=== PATIENT | male | born 1955 | race African-American/Black ===

== ENCOUNTER 2016-09-12 09:35 | Inpatient (IN) | payer OTHER ==
[~2016-09-12] VITALS: Ht 172.7 cm; Wt 68.2 kg
--- NOTE | ~2016-09-12 | H ---
[facility] [place] [address] HISTORY AND PHYSICAL Name: GILBERT HERNÁNDEZ Room #: 450-P ADM IN M.R.#: [id number] Admission: 09/12/16 Attend Phys: Gayathri Grullon MD Discharge: Date of : 59 Report #: [id number] THIS REPORT FOR: //name// CC: Gayathri Grullon [facility] physician/PCP REASON FOR ADMISSION: Altered mental status. HISTORY OF PRESENT ILLNESS: The patient is known to have vascular dementia with multiinfarct issues in the past. He was sent from his nursing facility. He stays at a lock down unit at [facility]. The emergency medical services were called because of an altered mental status and the patient had a fall actually last night. He does not recall if he had sustained any loss of consciousness or head injury. No reported chest pain or shortness of breath. Not really sure about the patient's baseline and how accurate the information he is providing me. He is alert, oriented and he is able to provide me with most of the history. He has been admitted because of high blood sugar and hyperosmolar issues in the past. He also carries a diagnosis of hypertension. He is known to have hyperlipidemia. No reported fever or chills. He does not recall the event of his fall. No reported headache post fall. CT was done and this revealed old changes along with possible new changes for which the radiologist recommended an MRI. The patient was admitted for further evaluation and management of his mental status. PAST MEDICAL HISTORY: 1. Hypertension. 2. Diabetes mellitus. 3. Multiinfarct dementia. 4. Remote history of UTIs and hyperosmolar status. ALLERGIES: No known drug allergies. MEDICATIONS: 1. Amlodipine 10 mg daily. 2. Aspirin daily. 3. Atorvastatin 80 mg daily. 4. Plavix 75 mg daily. 5. Glipizide 5 mg daily. 6. Isosorbide mononitrate 30 mg daily. 7. Quetiapine 25 mg daily. 8. Carvedilol 6.25 mg daily. 9. Divalproex 500 mg twice a day. 10. Metformin 1000 mg twice a day. FAMILY HISTORY: Really unreliable and unobtainable. SOCIAL HISTORY: He is a current smoker. He smokes about 4 cigarettes a day. [address] [address] HISTORY AND PHYSICAL Name: GILBERT HERNÁNDEZ Room #: 450-P [facility] IN M.R.#: [id number] Admission: 09/12/16 Attend Phys: Gayathri Grullon MD Discharge: Date of : 59 Report #: [id number] No alcohol abuse. He used to be a employment security officer. REVIEW OF SYSTEMS: GENERAL: No fever or chills. CARDIOVASCULAR: No chest pain or palpitation. PULMONARY: No cough or hemoptysis. GASTROINTESTINAL: No nausea or vomiting. GENITOURINARY: No frequency, no urgency. MUSCULOSKELETAL: Status post fall with back abrasion. NEUROLOGIC: No headache, no dizziness, no numbness in any part of his body. PHYSICAL EXAMINATION: GENERAL: The patient is actually alert, oriented. He is pleasant. He does not seem to be in apparent distress. It does look like that he had some behavioral changes and he is answering most of the questions by no, no. VITAL SIGNS: Blood pressure on presentation was 131/91. Temperature 36.8, pulse rate was 99. HEAD AND NECK: No jugular venous distention, no bruit, no thyromegaly. CHEST: Clear to auscultation bilaterally. CARDIOVASCULAR: Regular with no rub detected. ABDOMEN: Soft, nontender with no hepatosplenomegaly. LOWER EXTREMITIES: No edema. BACK: There is abrasion on that flank. LABORATORY DATA: Laboratory values revealed that the patient has potassium of 2.6, calcium of 6.1, magnesium and albumin of 1.9. IMAGES: CT images and chest x-ray were reviewed. ASSESSMENT, IMPRESSION AND PLAN: 1. Acute mental status issue with unknown baseline. 2. Hypokalemia. 3. Hypomagnesemia. 4. Hypertension. 5. Diabetes mellitus. 6. Hyperlipidemia. 7. Admission. 8. Replace electrolytes. 9. MRI of the brain. 10. Neurological consultations. 11. Repeat electrolyte panel in the next few hours. 12. Resume his blood pressure medications. 13. Resume his diabetic medications and add sliding scale insulin. 14. Very low risk for DVT. 15. Maintained on carvedilol, Plavix, aspirin, probably related to his previous [facility] [address] [place] [address] HISTORY AND PHYSICAL Name: GILBERT HERNÁNDEZ Room #: 450-P [facility] IN M.R.#: [id number] Admission: 09/12/16 Attend Phys: Gayathri Grullon MD Discharge: Date of : 59 Report #: [id number] stroke and multiinfarct dementia. 16. Neurological consultation. <ELECTRONICALLY SIGNED> By: Gayathri Grullon MD 09/13/16 1026 1125 1217 Gayathri Grullon MD /nt
--- NOTE | ~2016-09-12 | HC ---
[facility] [place] [address] CONSULTATION Name: GILBERT HERNÁNDEZ Room #: 450-P ADM IN M.R.#: [id number] Admission: 09/12/16 Attend Phys: Gayathri Grullon MD Discharge: Date of : 59 Report #: [id number] THIS REPORT FOR: //name// CC: Gayathri Grullon [facility] physician/PCP DATE OF SERVICE: 09/12/2016 HISTORY OF PRESENT ILLNESS: This is a 60-year-old male patient who was evaluated by me for altered mental status. The patient is somewhat of a poor historian and is nobody else who is here to verify the patient's history. The records indicates that he had alteration of mental status. It is not clear how long it is going on. He does not think much is wrong with him. Symptoms appear to be mild. It started spontaneously. The fall occurred per record, but is not clear what the fall was or whether he even hit anything. The patient does have multiple infarcts in the past and the speech is altered, but apparently it is somewhat more alter than now. REVIEW OF SYSTEMS: From the patient, he thinks he may be somewhat more confused than the baseline. He was having some difficulty with dizziness, which he indicates is better. He said he is a diabetic, but he is not sure whether his diabetes is under control or not. He denies any new cardiac, respiratory, GI, , musculoskeletal, constitutional, dermatological, hematological, psychiatric, throat symptoms associated with present symptomatology. He is hypertensive by history, but his blood pressure is running low here. His history is unreliable. He is a diabetic and his diabetes is uncontrolled. PAST MEDICAL HISTORY: Positive for multiple CVAs. FAMILY HISTORY: Negative for early age CVA. SOCIAL HISTORY: He smokes and he states he still smokes. PHYSICAL EXAMINATION: The patient's examination Indicates that this patient is alert and responsive. He is partly oriented. His speech is slurred. His memory and fund of knowledge is diminished. Cranial nerve examination 2-12 looks unremarkable. He has symmetrical strength, sensation, reflexes and tone in all four extremities. His reflexes are symmetrically diminished. He does cerebellar size. There is no meningeal sign or carotid bruit. I tried to look at the fundus, but he was not able to cooperate and I was not able to have a good look at the patient's fundus. He is a well-developed individual who does not have any dysmorphic features of eyes, ears and face. His hearing and vision looks adequate. His throat examination does not show any thyroid mass or any carotid bruit. Cardiac examination does not show any atrial fibrillation. His [address] [place] [address] CONSULTATION Name: GILBERT HERNÁNDEZ Room #: 450-P ADM IN M.R.#: [id number] Admission: 09/12/16 Attend Phys: Gayathri Grullon MD Discharge: Date of : 59 Report #: [id number] heart sounds are unremarkable. He does not appear to have marked respiratory difficulty. He does have occasional rhonchi on either side. His pulses are difficult to feel. He has no edema, cyanosis or jaundice. Blood pressure is 133/76, respirations 18, pulse is 80, and temperature is 97.9. LABORATORY DATA: His lab indicate normal white count, but he has marked abnormalities. Albumin is low. His potassium is 2.6. His blood sugar is high. His calcium is low. His CT scan of the head was reviewed and that does not show any acute changes, but shows numerous chronic changes probably because of its old stroke. IMPRESSION: 1. Multiple strokes. 2. Multi-infarct dementia. 3. Hypokalemia. 4. Multiple other abnormalities. 5. Uncontrolled diabetes. 6. Smoking as a risk factor for cerebrovascular accident. RECOMMENDATION: 1. MRI of the head. 2. MRA of the head and neck. 3. We will see if he needs echocardiogram. 4. Blood workup to see predisposition for his , continue aspirin. 5. We will change to full dose of aspirin. 6. EEG to look for encephalopathy. 7. We will see what this workup shows and decide about the further workup in this patient depending on the outcome of the testing. Thank you very much for this referral. <ELECTRONICALLY SIGNED> By: Jimy Collins MD 09/14/16 0133 1428 1607 Jimy Collins MD /nt
--- NOTE | ~2016-09-12 | 2DMMODE ---
[facility] [employer] [place] [place] [address] 2 D/M-MODE ECHOCARDIOGRAM Name: GILBERT HERNÁNDEZ Room #: 450-P ADM IN M.R.#: [id number] Admission: 09/12/16 Attend Phys: Gayathri Grullon, Discharge: Date of : 59 Date of Service: 09/15/16 0939 Report #: [id number] THIS REPORT FOR: //name// APPROVED REPORT EXAM: Comprehensive 2D, Doppler, and color-flow Echocardiogram Patient Location: Echo lab/Room 450 Blood Pressure: 137/92 mmHg HR: 86 bpm Rhythm: NSR Other Information Study Quality: Good Indications CVA/TIA Hx: HLP, HTN, DM, CVA Echo Enhancing Agent Indication: Rule out Shunt Agent/Amount Used: Agitated Saline cc 2D Dimensions RVDd: 33.90 mm LVEF(%): 52.23 (>50%) IVSd: 13.79 (7-11mm) LVOT Diam: 21.14 (18-24mm) LVDd: 39.32 mm PWd: 14.41 (7-11mm) Ascending Aorta: 29.16 mm LVDs: 28.96 (25-40mm) Aortic Root: 35.00 mm Rosenthal's LVEF: 52.23 % Volumes Left Atrial Volume (Systole) Single Plane 4CH: 33.56 mL Single Plane 2CH: 35.47 mL LA ESV Index: 21.00 mL/m2 Aortic Valve AoV Peak Abrahan.: 1.40 m/s AO Peak Gr.: 7.81 mmHg LV Max P.02 mmHg LV Max: 1.00 m/s Mitral Valve [facility] [address] [address] 2 D/M-MODE ECHOCARDIOGRAM Name: GILBERT HERNÁNDEZ Room #: 450-P [facility].#: [id number] Admission: 09/12/16 Attend Phys: Gayathri Grullon, Discharge: Date of : 59 Date of Service: 09/15/16 0939 Report #: [id number] PHT: 53.25 ms MV E Max Abrahan.: 0.79 m/s E/A Ratio: 0.9 MV A Abrahan.: 0.90 m/s MV Decel. Time: 183.63 ms TDI E/Lateral E': 10.00 E/Medial E': 11.00 Tricuspid Valve TR Peak Abrahan.: 2.25 m/s RAP Estimate: 5.00 mmHg TR Peak Gr.: 20.24 mmHg RVSP: 25.00 mmHg Left Ventricle The left ventricle is normal size. There is normal LV segmental wall motion. Mild concentric left ventricular hypertrophy. Left ventricular systolic function is normal. LVEF is 55%. Grade I - abnormal relaxation pattern. Right Ventricle The right ventricle is normal size. The right ventricular systolic function is normal. Atria The left atrium size is normal. A bubble study revealed no evidence for an interatrial shunt. The right atrium size is normal. Aortic Valve Aortic valve leaflets are mildly thickened. No aortic regurgitation is present. There is no aortic valvular stenosis. Mitral Valve Mitral valve leaflets are mildly thickened. There is no mitral valve regurgitation noted. Tricuspid Valve The tricuspid valve is normal in structure. There is trace to mild tricuspid regurgitation. The right atrial pressure is estimated at 5 mmHg. Estimated PAP of 25mmHg. Pulmonic Valve The pulmonary valve is normal in structure. Trace pulmonic regurgitation. Great Vessels The aortic root is normal in size. The ascending aorta is normal in size. IVC is normal in size and collapses >50% with inspiration. [facility] [address] [place] [address] 2 D/M-MODE ECHOCARDIOGRAM Name: GILBERT HERNÁNDEZ Room #: 450-P [facility] IN M.R.#: [id number] Admission: 09/12/16 Attend Phys: Gayathri Grullon, Discharge: Date of : 59 Date of Service: 09/15/16 0939 Report #: [id number] Pericardium There is no pericardial effusion. <Conclusion> The left ventricle is normal size. Mild concentric left ventricular hypertrophy. Left ventricular systolic function is normal. Grade I - abnormal relaxation pattern. The right ventricle is normal size. The left atrium size is normal. A bubble study revealed no evidence for an interatrial shunt. There is no aortic valvular stenosis. There is no mitral valve regurgitation noted. There is trace to mild tricuspid regurgitation. The right atrial pressure is estimated at 5 mmHg. Estimated PAP of 25mmHg. <ELECTRONICALLY SIGNED> By: Jamarcus Bro MD 09/15/1639 8 8 Jamarcus Bro MD /INF
--- NOTE | ~2016-09-12 | EKG ---
[place] [address] [address] [place] [address] ELECTROCARDIOGRAM REPORT Name: GILBERT HERNÁNDEZ Room #: 450-P ADM IN M.R.#: [id number] Admission: 09/12/16 Attend Phys: Gayathri Grullon MD Discharge: Date of : 59 Report #: [id number] THIS REPORT FOR: //name// [facility] ED Test Date: 2016-09-12 Test Time: 09:47:20 Pat Name: GILBERT HERNÁNDEZ Department: Room: 450 Gender: M Director Of Agriculture: MZOOK : 1955 Requested By: Toi Marroquin Order Number: [id number] MD: Kyler Momin Measurements Intervals Lackey Rate: 93 P: 58 NC: 234 QRS: 3 QRSD: 99 T: 74 QT: 373 QTc: 464 Interpretive Statements Sinus rhythm Prolonged NC interval Borderline T wave abnormalities No previous ECG available for comparison Electronically Signed On 09-13-2016 15:15:27 CDT by Kyler Momin [email or web address] <ELECTRONICALLY SIGNED> By: Kyler Momin MD, [facility] 09/13/16 1515 0947 6 Kyler Momin MD, FACC /EPI
--- NOTE | ~2016-09-12 | EEG ---
[facility] [place] [address] ELECTROENCEPHALOGRAM Name: GILBERT HERNÁNDEZ Room #: 450-P ADM IN M.R.#: [id number] Admission: 09/12/16 Attend Phys: Gayathri Grullon MD Discharge: Date of : 59 Report #: [id number] THIS REPORT FOR: //name// CC: Gayathri Grullon [facility] physician/PCP DATE OF SERVICE: 09/12/2016 This patient is being evaluated for altered mental status. The EEG was done by placing the electrodes by standard 10-20 system of electrode placement. Both referential and sequential montages were used for recording. Background activity in this patient's EEG is about 9 Hz and 25 microvolt. This is a symmetrical activity. The patient went to sleep that is associated with bilaterally symmetrical sleep spindle and vertex sharp waves. Photic stimulation is unremarkable. Throughout the record, no active epileptiform activity was noticed. IMPRESSION: This patient's EEG is intermixed with slight theta range slowing. That is a nonspecific abnormality, which can occur with encephalopathy, effect of psychotropic medication, dementia, etc. Clinical correlation is recommended. Thank you very much for this referral. By: 1301 1454 Jimy Collins MD /nt
[2016-09-12 09:37] VITALS: BP 137/84
[2016-09-12] MEDS ORDERED: IRON325 PO (09:56)
[2016-09-12] MEDS ORDERED: METFORMIN HCL500 MG PO (09:56)
[2016-09-12] MEDS ORDERED: HALDOL 0.5 MG0.5 MG PO (09:57)
[2016-09-12] MEDS ORDERED: NOVOLOG100 UNIT/1 SUBQ (09:58)
[2016-09-12] MEDS ORDERED: SEROQUEL 25 MG25 M1 PO ×2 (09:58→10:01)
[2016-09-12] MEDS ORDERED: AMLODIPINE BESY10 MG PO (09:59)
[2016-09-12] MEDS ORDERED: ASPIR 8181 MG PO (09:59)
[2016-09-12] MEDS ORDERED: LANTUS100 UNIT/M SUBQ (09:59)
[2016-09-12] MEDS ORDERED: CLOPIDOGREL75 MG PO (10:00)
[2016-09-12] MEDS ORDERED: GLUCOTROL5 MG PO (10:00)
[2016-09-12] MEDS ORDERED: ATORVASTATIN CA40 MG PO (10:00)
[2016-09-12 10:01] LABS: ABSOLUTE NEUTROPHILS 6.1 thou/uL (1.4-8.2); BASOPHILS 1.1 % (0.0-2.0); EOSINOPHILS 2.5 % (0.0-3.0); LYMPHOCYTES 19.6 % (24.0-44.0); MANUAL DIFF NO; MCH 26.9 pg (26.0-34.0); MCHC 33.5 g/dL (28.0-37.0); MCV 80.5 fL (80.0-100.0); MONOCYTES 9.4 % (1.0-8.0); PLATELET COUNT 220 thou/uL (150-400); POLYS 67.4 % (36.0-66.0); RBC 4.09 mil/uL (4.50-6.00); RDW 17.4 % (10.5-14.5)
[2016-09-12] MEDS ORDERED: IMDUR 30 MG TAB30 M1 PO (10:01)
[2016-09-12] MEDS ORDERED: COREG6.25 MG PO (10:01)
[2016-09-12] MEDS ORDERED: DEPAKOTE ER500 MG PO (10:02)
[2016-09-12 10:14] LABS: ALBUMIN 1.9 g/dL (3.4-5.0); ALKALINE PHOSPHATASE 51 U/L (46-116); ANION GAP 6 mmol/L (7-16); BUN 8 mg/dL (7-18); CALCIUM 6.1 mg/dL (8.5-10.1); CHLORIDE 116 mmol/L (98-107); CO2 20 mmol/L (21-32); CREATININE 0.6 mg/dL (0.6-1.3); GLUCOSE 154 mg/dL (70-99); SGOT 12 U/L (15-37); SGPT 10 U/L (30-65); SODIUM 142 mmol/L (136-145); TOTAL BILIRUBIN 0.3 mg/dL (<0.1-1.0); TOTAL PROTEIN 4.4 g/dL (6.4-8.2); TROPONIN-I < 0.04 ng/mL (<0.04-0.07)
[2016-09-12 10:18] LABS: POTASSIUM 2.6 mmol/L (3.5-5.1)
[2016-09-12 11:12] LABS: URINE BILIRUBIN NEGATIVE (Negative); URINE BLOOD TRACE (Negative); URINE COLOR YELLOW; URINE GLUCOSE-RANDOM* TRACE (Negative); URINE KETONES NEGATIVE (Negative); URINE LEUKOCYTES-REFLEX NEGATIVE (Negative); URINE PROTEIN (DIPSTICK) NEGATIVE (Negative); URINE UROBILINOGEN 0.2 E.U./dl (0.2-1.0)
[2016-09-12 11:58] VITALS: BP 123/64
[2016-09-12] MEDS ORDERED: DEPAKOTE500 MG PO (12:39)
[2016-09-12 13:52] VITALS: BP 133/76
[2016-09-12 16:30] LABS: TSH 0.42 uIU/mL (0.358-3.740)
[2016-09-12 18:54] VITALS: BP 147/77
[2016-09-12 22:21] LABS: ALBUMIN 3.1 g/dL (3.4-5.0); ANION GAP 5 mmol/L (7-16); BUN 10 mg/dL (7-18); CHLORIDE 104 mmol/L (98-107); CO2 28 mmol/L (21-32); GLUCOSE 104 mg/dL (70-99); MAGNESIUM 2.3 mg/dL (1.8-2.4); PHOSPHORUS 3.9 mg/dL (2.5-4.9); SODIUM 137 mmol/L (136-145); TROPONIN-I < 0.04 ng/mL (<0.04-0.07)
[2016-09-12 22:26] LABS: CALCIUM 9.1 mg/dL (8.5-10.1)
[2016-09-12 22:41] LABS: POTASSIUM 5.1 mmol/L (3.5-5.1)
[2016-09-13 03:40] VITALS: BP 137/87
[2016-09-13 06:28] LABS: ALBUMIN 3.1 g/dL (3.4-5.0); CALCIUM 9.3 mg/dL (8.5-10.1); MAGNESIUM 2.2 mg/dL (1.8-2.4); POTASSIUM 4.8 mmol/L (3.5-5.1); TOTAL BILIRUBIN 0.4 mg/dL (<0.1-1.0); TOTAL PROTEIN 6.4 g/dL (6.4-8.2)
[2016-09-13 08:25] VITALS: BP 137/84
[2016-09-13 12:13] VITALS: BP 158/90
[2016-09-13 16:00] VITALS: BP 141/87
[2016-09-13 20:00] VITALS: BP 147/90
[2016-09-14 04:00] VITALS: BP 147/88
[2016-09-14 06:10] LABS: HEMATOCRIT 33.8 % (42.0-52.0); HEMOGLOBIN 11.3 gm/dL (14.0-18.0); MCH 26.7 pg (26.0-34.0); MCHC 33.4 g/dL (28.0-37.0); MCV 80.1 fL (80.0-100.0); RBC 4.22 mil/uL (4.50-6.00); RDW 17.3 % (10.5-14.5); WBC 8.4 thou/uL (4.0-11.0)
[2016-09-14 06:29] LABS: CALCIUM 9.1 mg/dL (8.5-10.1); CREATININE 0.9 mg/dL (0.6-1.3); PHOSPHORUS 4.8 mg/dL (2.5-4.9); POTASSIUM 3.9 mmol/L (3.5-5.1)
[2016-09-14 07:48] VITALS: BP 140/89
[2016-09-14 12:16] VITALS: BP 124/80
[2016-09-14 14:11] LABS: SYPHILIS AB Negative (Negative)
[2016-09-14 15:34] VITALS: BP 128/77
[2016-09-14 19:29] VITALS: BP 126/82
[2016-09-15 04:04] VITALS: BP 14/93
[2016-09-15 08:25] VITALS: BP 137/92
[2016-09-15] MEDS ORDERED: ASPIRIN EC325 M1 PO (11:49)
[2016-09-15 12:38] VITALS: BP 127/81
[2016-09-15 22:06] LABS: ANTITHROMBIN III 108 % (75-135); DIL. RUSSELL VIPER VENOM 33.3 sec (0.0-44.0)
== END 2016-09-15 15:03 | DRG 64 ==
LOC: ER 09:35 → EROBS 11:09 → 4W 11:09 → EROBS 12:12 → 4W 12:20
PROVIDERS: Emergency Medicine; Hospitalist; Psychiatry & Neurology Neuromuscular Medicine
DX: I63.9 Cerebral infarction, unspecified (principal); G93.41 Metabolic encephalopathy; F01.50 Vascular dementia, unspecified severity, without behavioral disturbance, psychotic disturbance, mood disturbance, and anxiety; I10 Essential (primary) hypertension; E78.5 Hyperlipidemia, unspecified; E11.65 Type 2 diabetes mellitus with hyperglycemia; K21.9 Gastro-esophageal reflux disease without esophagitis; E87.6 Hypokalemia; E83.42 Hypomagnesemia; F17.210 Nicotine dependence, cigarettes, uncomplicated; Z87.440 Personal history of urinary (tract) infections; Z79.82 Long term (current) use of aspirin; Z79.899 Other long term (current) drug therapy
CPT/HCPCS: 10045